=== PATIENT | male | born 1945 | race Caucasian/White ===

== ENCOUNTER → 2016-10-28 | Outpatient (CLI) | payer MEDICARE, BC ==
--- NOTE | 2016-10-28 15:10 | RADRPT ---
PROCEDURE: XR Chest. CLINICAL INDICATION: COUGH TECHNIQUE: PA and lateral views of the chest were obtained COMPARISON: None FINDINGS: The heart is within normal limits in size. There is atherosclerosis of the thoracic aorta. There i s no evidence of pulmonary vascular congestion acute lung consolidation pleural effusions and pneumo thorax. There is atherosclerosis of thoracic aorta. IMPRESSION: No evidence of acute cardiopulmonary disease. RPTAT:AAJJ Physician Lester Date Time Electronically viewed and signed by Max Prater Physician on 10/28/2016 15:09 BM/
== END | disposition home or self-care (01) ==
LOC: RAD 14:32
PROVIDERS: ATTEND Family Medicine
DX: R05 Cough (principal)
CPT/HCPCS: 71020